=== PATIENT | male | born 1990 | race Caucasian/White ===

== ENCOUNTER 2018-03-19 12:10 | Emergency (ER) | payer BC ==
[2018-03-19 13:02] LABS: Absolute Monocytes 0.7 K/uL (0.1-1.3); Absolute Neutrophil 7.1 K/uL (1.8-8.0); Basophils % 0.7 % (0-1.3); Hematocrit 51.4 % (39.6-49.0); Lymphocytes % 20.5 % (15.3-44.8); MCH 29.7 pg (27.0-35.0); MCV 87.9 fL (80-100); MPV 12.2 fL (7.6-11.3); Monocytes % 6.9 % (3.3-12.3); RBC Red Blood Cell Count 5.85 M/uL (4.33-5.43)
[2018-03-19 13:13] LABS: Bicarbonate 25 mEq/L (21-31); Glucose Level 92 mg/dL (65-120); Lipase 26 U/L (22-51); Potassium 3.8 mEq/L (3.6-5.0); Sodium Level 139 mEq/L (135-145)
[2018-03-19 13:19] LABS: ALT/SGPT 27 IU/L (10-60); AST/SGOT 20 IU/L (10-42); Alkaline Phosphatase 58 IU/L (42-121); Amylase Level 61 U/L (28-100); BUN Blood Urea Nitrogen 12 mg/dL (6-20); Bilirubin Direct 0.1 mg/dL (0-0.2); Bilirubin Total 0.7 mg/dL (0.3-1.2); Protein, Total 8.1 g/dL (6.0-8.3)
[2018-03-19] MEDS ORDERED: NA CHLORIDE 0.9% 1,000 ML ONE (13:33)
[2018-03-19] MEDS ORDERED: KETOROLAC 30 MG/ML INJ ONE (13:33)
[2018-03-19] MEDS ORDERED: ONDANSETRON 4 MG/2 ML VIAL ONE (13:33)
--- NOTE | 2018-03-19 14:12 | EDPHYS ---
Physician Documentation [facility] Name: Navdeep Yo Age: 27 yrs Sex: Male : 1990 Arrival Date: 03/19/2018 Time: 12:14 Bed 18 Private MD: ED Physician Abdullahi Vernon HPI: 03/19 13:07 This 27 yrs old Male presents to ER via Ambulatory with complaints of kb Abdominal Pain. 13:07 The patient presents with abdominal pain in the right upper quadrant. Onset: The kb symptoms/episode began/occurred last night. The symptoms do not radiate. Associated signs and symptoms: Pertinent positives: nausea, vomiting, and diarrhea. The symptoms are described as achy. Modifying factors: The symptoms are alleviated by nothing, the symptoms are aggravated by pressure. Severity of pain: At its worst the pain was moderate in the emergency department the pain is unchanged. The patient has experienced a previous episode. The patient has not recently seen a physician. 13:08 Pt states he has had RUQ pain, n/v/d since last night. States the nausea and vomiting kb have gotten better. Reports the pain feels like the pain he had when he was diagnosed with an ulcer in the past. Historical: - Allergies: 12:19 No Known Allergies; la1 - PMHx: 12:19 Hypertension; la1 - Immunization history:: Adult Immunizations up to date. - Social history:: Smoking status: Patient uses tobacco products, smokes one-half pack cigarettes per day. ROS: 13:06 Constitutional: Negative for fever, chills, and weight loss, Cardiovascular: Negative kb for chest pain, palpitations, and edema, Respiratory: Negative for shortness of breath, cough, wheezing, and pleuritic chest pain, Back: Negative for injury and pain, : Negative for injury, bleeding, discharge, and swelling, MS/Extremity: Negative for injury and deformity, Skin: Negative for injury, rash, and discoloration, Neuro: Negative for headache, weakness, numbness, tingling, and seizure. 13:06 Abdomen/GI: Positive for abdominal pain, nausea, vomiting, and diarrhea, Negative for constipation, abdominal cramps, abdominal distension, anorexia. Exam: 13:06 Constitutional: This is a well developed, well nourished patient who is awake, alert, kb and in no acute distress. Head/Face: Normocephalic, atraumatic. Chest/axilla: Normal chest wall appearance and motion. Nontender with no deformity. No lesions are appreciated. Cardiovascular: Regular rate and rhythm with a normal S1 and S2. No gallops, murmurs, or rubs. Normal PMI, no JVD. No pulse deficits. Respiratory: Lungs have equal breath sounds bilaterally, clear to auscultation and percussion. No rales, rhonchi or wheezes noted. No increased work of breathing, no retractions or nasal flaring. Back: No spinal tenderness. No costovertebral tenderness. Full range of motion. Skin: Warm, dry with normal turgor. Normal color with no rashes, no lesions, and no evidence of cellulitis. MS/ Extremity: Pulses equal, no cyanosis. Neurovascular intact. Full, normal range of motion. Neuro: Awake and alert, GCS 15, oriented to person, place, time, and situation. Cranial nerves II-XII grossly intact. Motor strength 5/5 in all extremities. Sensory grossly intact. Cerebellar exam normal. Normal gait. 13:06 Abdomen/GI: Inspection: abdomen appears normal, Bowel sounds: normal, in all quadrants, Palpation: soft, in all quadrants, nontender, in the left upper quadrant, right lower quadrant and left lower quadrant, moderate abdominal tenderness, in the right upper quadrant. Vital Signs: 12:19 BP 148 / 98; Pulse 97; Resp 19; Temp 97.6; Pulse Ox 100% on R/A; Weight 86.18 kg; la1 Height 5 ft. 11 in. (180.34 cm); 12:19 Body Mass Index 26.50 (86.18 kg, 180.34 cm) la1 MDM: 12:21 Patient medically screened. kb 13:06 Data reviewed: vital signs, nurses notes. Data interpreted: Pulse oximetry: on room air kb is 100 %. Interpretation: normal. 14:11 Counseling: I had a detailed discussion with the patient and/or guardian regarding: the kb historical points, exam findings, and any diagnostic results supporting the discharge/admit diagnosis, lab results, radiology results, the need for outpatient follow up, a family practitioner, a special forces engineer sergeant, to return to the emergency department if symptoms worsen or persist or if there are any questions or concerns that arise at home. 03/19 12:34 Order name: Amylase, Serum; Complete Time: 13:20 kb 03/19 12:34 Order name: Basic Metabolic Panel; Complete Time: 13:20 kb 03/19 12:34 Order name: CBC with Diff; Complete Time: 13:10 kb 03/19 12:34 Order name: Hepatic Function; Complete Time: 13:20 kb 03/19 12:34 Order name: Lipase; Complete Time: 13:20 kb 03/19 13:22 Order name: US Abdomen Limited; Complete Time: 14:33 kb 03/19 12:34 Order name: IV Saline Lock; Complete Time: 12:47 kb 03/19 12:34 Order name: Labs collected and sent; Complete Time: 12:47 kb Administered Medications: 13:22 Drug: NS 0.9% 1000 ml Route: IV; Rate: 1000 ml; Site: right antecubital; hj 13:22 Drug: Zofran 4 mg Route: IVP; Site: right antecubital; hj 14:29 Follow up: Response: No adverse reaction hj 13:22 Drug: TORadol 30 mg Route: IVP; Site: right antecubital; hj 14:28 Follow up: Response: No adverse reaction hj 14:11 Drug: ProTONIX 40 mg Route: IVP; Site: right antecubital; hj 14:45 Follow up: Response: No adverse reaction Disposition: 03/19/18 14:12 Discharged to Home. Impression: Upper abdominal pain, unspecified. - Condition is Stable. - Discharge Instructions: Abdominal Pain, Adult, Affe-se-Opmy. - Prescriptions for Bentyl 20 mg Oral Tablet - take 1 tablet by ORAL route every 6 hours As needed; 20 tablet. Protonix 40 mg Oral Tablet - take 1 tablet by ORAL route once daily; 30 tablet. Zofran 4 mg Oral Tablet - take 1 tablet by ORAL route every 6 hours As needed; 20 tablet. - Medication Reconciliation Form, Thank You Letter, Antibiotic Education, Prescription Opioid Use form. - Follow up: Emergency Department; When: As needed; Reason: Worsening of condition. Follow up: Private Physician; When: 2 - 3 days; Reason: Recheck today's complaints, Continuance of care, Re-evaluation by your physician. Addendum: 03/28/2018 05:51 Co-signature as Attending Physician, Abdullahi Vernon MD I agree with the assessment and w a plan of care. Signatures: Dispatcher [employer] EDPau Johnson, STEAM BOILER FIREMAN-C STEAM BOILER FIREMAN-Ckb Arvind Montoya RN RN la1 Maurice Bates RN AGNEL hj Abdullahi Vernon MD MD wa Corrections: (The following items were deleted from the chart) 03/19 14:49 14:12 03/19/2018 14:12 Discharged to Home. Impression: Upper abdominal pain, hj unspecified. Condition is Stable. Forms are Medication Reconciliation Form, Thank You Letter, Antibiotic Education, Prescription Opioid Use. Follow up: Emergency Department; When: As needed; Reason: Worsening of condition. Follow up: Private Physician; When: 2 - 3 days; Reason: Recheck today's complaints, Continuance of care, Re-evaluation by your physician. kb
--- NOTE | 2018-03-19 14:12 | ER ---
Nurse's Notes [facility] Name: Navdeep Yo Age: 27 yrs Sex: Male : 1990 Arrival Date: 03/19/2018 Time: 12:14 Bed 18 Private MD: Diagnosis: Upper abdominal pain, unspecified Presentation: 03/19 12:19 Presenting complaint: Patient states: RLQ pain, N/V/D since last night'. Transition of la1 care: patient was not received from another setting of care. Onset of symptoms was March 19, 2018. Initial Sepsis Screen: Does the patient meet any 2 criteria? No. Patient's initial sepsis screen is negative. Does the patient have a suspected source of infection? No. Patient's initial sepsis screen is negative. Care prior to arrival: None. 12:19 Method Of Arrival: Ambulatory la1 12:19 Acuity: DAV 3 la1 Triage Assessment: 12:35 General: Appears in no apparent distress. uncomfortable, Behavior is calm, cooperative, hj appropriate for age. Pain: Complains of pain in abdomen. GI: Reports lower abdominal pain, upper abdominal pain. Historical: - Allergies: 12:19 No Known Allergies; la1 - PMHx: 12:19 Hypertension; la1 - Immunization history:: Adult Immunizations up to date. - Social history:: Smoking status: Patient uses tobacco products, smokes one-half pack cigarettes per day. Screenin:35 Abuse screen: Denies threats or abuse. Denies injuries from another. Nutritional hj screening: No deficits noted. Tuberculosis screening: No symptoms or risk factors identified. Fall Risk None identified. Assessment: 12:35 GI: Bowel sounds present X 4 quads. Abd is soft. hj Vital Signs: 12:19 BP 148 / 98; Pulse 97; Resp 19; Temp 97.6; Pulse Ox 100% on R/A; Weight 86.18 kg; la1 Height 5 ft. 11 in. (180.34 cm); 12:19 Body Mass Index 26.50 (86.18 kg, 180.34 cm) la1 ED Course: 12:14 Patient arrived in ED. sb2 12:19 Triage completed. la1 12:20 Arm band placed on right wrist. la1 12:21 Mikal Weinberg FNP-C is PHCP. kb 12:21 Abdullahi Vernon MD is Attending Physician. kb 12:34 Maurice Bates, RN is Primary Nurse. hj 12:36 Patient has correct armband on for positive identification. Placed in gown. Bed in low hj position. Call light in reach. Side rails up X 1. 13:55 Ultrasound completed. Patient tolerated well. Notified PARKS RECREATION COORDINATOR/PA MIKAL. ap2 14:46 No provider procedures requiring assistance completed. Initial lab(s) drawn, by me, hj sent to lab. Inserted saline lock: 22 gauge in right antecubital area, using aseptic technique. Blood collected. IV discontinued, intact, bleeding controlled, No redness/swelling at site. Pressure dressing applied. Administered Medications: 13:22 Drug: NS 0.9% 1000 ml Route: IV; Rate: 1000 ml; Site: right antecubital; hj 13:22 Drug: Zofran 4 mg Route: IVP; Site: right antecubital; hj 14:29 Follow up: Response: No adverse reaction hj 13:22 Drug: TORadol 30 mg Route: IVP; Site: right antecubital; hj 14:28 Follow up: Response: No adverse reaction hj 14:11 Drug: ProTONIX 40 mg Route: IVP; Site: right antecubital; hj 14:45 Follow up: Response: No adverse reaction hj Outcome: 14:12 Discharge ordered by MD. kb 14:46 Discharged to home ambulatory. hj 14:46 Condition: stable 14:46 Discharge instructions given to patient, Instructed on discharge instructions, follow up and referral plans. medication usage, Demonstrated understanding of instructions, follow-up care, medications, Prescriptions given X 3. 14:49 Patient left the ED. Signatures: Dispatcher [employer] EDIN Mikal Weinberg, SPIRAL RUNNER-C SPIRAL RUNNER-CkArvind Stevenson, RN RN la1 Mauriec Bates, RN RN Leslee Estrada ap2 Jewels Hagen sb2 Corrections: (The following items were deleted from the chart) 14:27 14:23 In radiology for Abdomen Limited+[email or web address]. EDMS ap2
--- NOTE | 2018-03-19 14:31 | RAD REPORT ---
EXAM DESCRIPTION: US - Abdomen Exam Limited - 03/19/2018 2:23 pm CLINICAL HISTORY: Abdominal pain. COMPARISON: None. FINDINGS: The gallbladder demonstrates no gallstones. No pericholecystic fluid or gallbladder wall t hickening. The common bile duct is normal measuring 3 mm. The liver demonstrates no findings of intrahepatic biliary dilatation. IMPRESSION: Unremarkable examination.
== END 2018-03-19 14:49 | disposition home or self-care (01) ==
LOC: ER 12:10
DX: R10.11 Right upper quadrant pain (principal); I10 Essential (primary) hypertension; F17.210 Nicotine dependence, cigarettes, uncomplicated
CPT/HCPCS: 36415; 76705; 80048; 80076; 82150; 83690; 85025; 96374; 96375; 99284; J2405; J7030

== ENCOUNTER 2019-10-10 08:44 | Observation (INO) | payer BC, SELFPAY ==
[2019-10-10] MEDS ORDERED: NA CHLORIDE 0.9% 1,000 ML ONE ×3 (08:55→10:50)
[2019-10-10 09:00] LABS: Absolute Lymphocytes (CBC) 3.3 K/uL (0.7-4.9); Basophils % 0.7 % (0-1.3); Hematocrit 50.5 % (39.6-49.0); Lymphocytes % 29.6 % (15.3-44.8); MPV 11.9 fL (7.6-11.3); RBC Red Blood Cell Count 5.51 M/uL (4.33-5.43)
[2019-10-10 09:10] LABS: Protime INR 0.93
[2019-10-10 09:21] LABS: ALT/SGPT 33 U/L (12-78); AST/SGOT 16 U/L (15-37); Albumin 4.7 g/dL (3.4-5.0); Alkaline Phosphatase 73 U/L (45-117); BUN Blood Urea Nitrogen 13 mg/dL (7-18); Bilirubin Direct 0.1 mg/dL (0-0.2); Bilirubin Total 0.2 mg/dL (0.2-1.0); Glucose Level 129 mg/dL (74-106); Potassium 3.8 mmol/L (3.5-5.1); Protein, Total 8.6 g/dL (6.4-8.2); Sodium Level 146 mmol/L (136-145)
[2019-10-10] MEDS ORDERED: ONDANSETRON 4 MG/2 ML VIAL ONE ×3 (09:21→16:03)
[2019-10-10 09:24] LABS: Bicarbonate 13 mmol/L (21-32)
--- NOTE | 2019-10-10 09:38 | EKG ---
Test Date: 2019-10-10 Test Time: 08:52:24 Telegraph And Teletype Operator: EFE MEASUREMENT RESULTS: Intervals: Rate: 123 [place]: 156 QRSD: 96 QT: 326 QTc: 466 [place]: P: 59 [place]: 156 QRS: 64 T: 21 INTERPRETIVE STATEMENTS: Sinus tachycardia Otherwise normal ECG Compared to ECG 03/08/2011 09:40:34 Sinus rhythm no longer present Electronically Signed On 10-10-19 09:37:58 AMERICAN BOARD CERTIFIED ORTHOTIST by Emil Garner
--- NOTE | 2019-10-10 09:47 | RAD REPORT ---
EXAM DESCRIPTION: CT - Head Brain Wo Cont - 10/10/2019 9:07 am CLINICAL HISTORY: Seizure COMPARISON: 2010 TECHNIQUE: Computed axial tomography of the head was obtained. IV contrast was not requested. All CT scans are performed using dose optimization technique as appropriate and may include automated exposure control or mA/KV adjustment according to patient size. FINDINGS: An intracranial bleed is not seen . The ventricles are normal in caliber. No extra-axial fluid collection is noted. A 3 millimeter peripherally calcified structure is present along the floor of the fourth ventricle. T his is not seen on the prior exam Fluid within the sinuses/ mastoids is not seen. IMPRESSION: A 3 millimeter peripherally calcified structure is present along the floor of the fourth ventricle . It is recommended that the patient have an MRI with contrast for further evaluation
--- NOTE | 2019-10-10 11:58 | RAD REPORT ---
EXAM DESCRIPTION: MRI - Brain Wo Cont - 10/10/2019 11:31 am CLINICAL HISTORY: abnormal CT findings Seizure COMPARISON: Head Brain Wo Cont dated 10/10/2019Head Brain Wo Cont dated 10/10/2019; HEAD BRAIN W O CON TRAST dated 03/08/2011 TECHNIQUE: Multi-sequence, multiplanar MR imaging of the brain was performed without contrast. FINDINGS: No intracranial hemorrhage, hydrocephalus or extra-axial fluid collections. No edema or sh ift of midline structures. No findings to suspect brain mass. DWI is negative for acute CVA. Midline structures are normally formed. Hippocampal structures and temporal lobes appear symmetric. T he small lesion seen near the inferior fourth ventricle on recent CT is not visualized on this examin ation. Mastoid air cells and paranasal sinuses are clear. IMPRESSION: No correlate abnormality is seen on the MRI to the small lesion identified on recent CT study. Recommending follow-up CT head examination in 6 months for surveillance purposes. No acute intracranial abnormality or otherwise pathologic finding seen on this study.
--- NOTE | 2019-10-10 12:23 | ER ---
Nurse's Notes [facility] Name: Navdeep Yo Age: 29 yrs Sex: Male : 1990 Arrival Date: 10/10/2019 Time: 08:46 Bed 4 Private MD: Diagnosis: Seizure;Altered mental status, unspecified;Dehydration Presentation: 10/10 08:49 Presenting complaint: Coworker reports that when they were driving to their job site ss that patient had what seemed to be a seizure lasting 1-2 minutes. Pt reports that he went out drinking last night had 6-7 beers, went home and fell asleep. Denies drug use. Pt states he feels as if somebody drugged him. Transition of care: patient was not received from another setting of care. Onset of symptoms was October 10, 2019. Risk Assessment: Do you want to hurt yourself or someone else? Patient reports no desire to harm self or others. Initial Sepsis Screen: Does the patient meet any 2 criteria? RR > 20 per min. HR > 90 bpm. Does the patient have a suspected source of infection? No. Patient's initial sepsis screen is negative. Note Co worker reports that when patient arrived to work this morning, he was drowsy and had slow speech. Care prior to arrival: None. 08:49 Acuity: DAV 2 ss 08:49 Method Of Arrival: Wheelchair ss Historical: - Allergies: 08:53 No Known Allergies; ss - Home Meds: 08:53 None [Active]; ss - PMHx: 08:53 Hypertension; ss - PSHx: 08:53 None; ss - Immunization history:: Adult Immunizations unknown. - Social history:: Patient uses alcohol, occasionally. Patient/guardian denies using street drugs, Smoking status: unknown. - Ebola Screening: : Patient denies exposure to infectious person Patient denies travel to an Ebola-affected area in the 21 days before illness onset. Screenin:55 Abuse screen: Denies threats or abuse. Denies injuries from another. Nutritional hb screening: No deficits noted. Tuberculosis screening: No symptoms or risk factors identified. Fall Risk Total Lion Fall Scale indicates High Risk Score (45 or more points). Fall prevention measures have been instituted. Side Rails Up X 2 Frequent Obs/Assessments Occuring Family Present and informed to notify staff if the need to leave the bedside As available patient and family educated on Fall Prevention Program and Strategies. Assessment: 09:00 General: Appears in no apparent distress. Behavior is calm, cooperative, Smells of hb alcohol. Pain: Denies pain. Neuro: Level of Consciousness is awake, alert, obeys commands, Oriented to person, place, time, situation. Cardiovascular: Heart tones S1 S2 present Capillary refill < 3 seconds Patient's skin is warm and dry. Respiratory: Airway is patent Respiratory effort is even, unlabored, Respiratory pattern is regular, symmetrical, Breath sounds are clear bilaterally. GI: No signs and/or symptoms were reported involving the gastrointestinal system. : No signs and/or symptoms were reported regarding the genitourinary system. EENT: No signs and/or symptoms were reported regarding the EENT system. Derm: Skin is healthy with good turgor, Skin is pink, warm \T\ dry. Musculoskeletal: No signs and/or symptoms reported regarding the musculoskeletal system. 09:20 Reassessment: Pt returned from ct and reports nausea, ERD notified, see MAR for orders. jl7 10:00 Reassessment: Patient appears in no apparent distress at this time. Patient and/or hb family updated on plan of care and expected duration. Pain level reassessed. Patient is alert, oriented x 3, equal unlabored respirations, skin warm/dry/pink. 10:17 Reassessment: pt assisted to standing to try to obtain urine specimen, pt unable to iw urinate at this time, assisted back to bed, pt unsteady on feet, follows commands but is slow to respond, family at bedside, pt remains tachycardic at 111 bpm, VSS, NAD, 2nd liter NS bolus started. 11:14 Reassessment: pt remains in MRI at this time. iw 11:30 Reassessment: pt back from MRI. iw 11:35 Reassessment: Patient appears in no apparent distress at this time. Patient and/or iw family updated on plan of care and expected duration. Pain level reassessed. Patient is alert, oriented x 3, equal unlabored respirations, skin warm/dry/pink. pt states his feet feel tingly, does not feel back to normal yet, family at bedside, pt still tachycardic, 3rd liter of fluid started now. 14:44 Reassessment: Patient appears in no apparent distress at this time. Patient and/or iw family updated on plan of care and expected duration. Pain level reassessed. Patient is alert, oriented x 3, equal unlabored respirations, skin warm/dry/pink. tech at bedside for EEG. 15:08 Reassessment: Patient appears in no apparent distress at this time. Patient and/or iw family updated on plan of care and expected duration. Pain level reassessed. Patient is alert, oriented x 3, equal unlabored respirations, skin warm/dry/pink. pt c/o nausea. 16:07 Reassessment: Pt c/o nausea. Zofran given as ordered. ss 16:20 Reassessment: Report given to ANGEL Ludwig. Vital Signs: 08:53 BP 139 / 75; Pulse 131; Resp 24; Pulse Ox 96% on R/A; Pain 0/10; ss 10:16 BP 140 / 80; Pulse 111; Resp 18 S; Pulse Ox 99% on R/A; iw 11:56 BP 143 / 98; Pulse 107; Resp 16 S; Temp 98.0(TE); Pulse Ox 98% on R/A; iw 12:51 BP 134 / 101; Pulse 108; Resp 16 S; Pulse Ox 100% on R/A; jl7 13:25 BP 122 / 109; Pulse 109; Resp 18; Temp 98.0(TE); Pulse Ox 96% on R/A; mh5 15:08 BP 133 / 97; Pulse 108; Resp 16; Pulse Ox 100% on R/A; iw 16:20 Pain 0/10; ss ED Course: 08:46 Patient arrived in ED. mr 08:47 Gordon Sharif PA is PHCP. jr8 08:47 Rome Rose MD is Attending Physician. jr8 08:50 Inserted saline lock: 18 gauge in right antecubital area, using aseptic technique. hb Blood collected. 08:52 Triage completed. ss 08:53 Arm band placed on left wrist. ss 08:55 Kaylin Carrizales, ANGEL is Primary Nurse. hb 09:00 Patient has correct armband on for positive identification. Placed in gown. Bed in low hb position. Call light in reach. Side rails up X2. Seizure precautions initiated. 09:04 EKG done, by instrument tech. reviewed by Gordon CALDERON. at1 09:11 CT Head Brain wo Cont In Process Unspecified. EDMS 11:26 MRI - Brain Wo Cont In Process Unspecified. EDMS 12:21 Armani Haines MD is Hospitalizing Provider. jr8 14:40 EEG was performed. at1 16:20 No provider procedures requiring assistance completed. Patient admitted, IV remains in ss place. Administered Medications: 08:57 Drug: NS 0.9% 1000 ml Route: IV; Rate: 1000 ml; Site: right antecubital; hb 09:20 Drug: Zofran 4 mg Route: IVP; Site: right antecubital; jl7 09:40 Follow up: Response: No adverse reaction; Nausea is decreased jl7 10:15 Drug: NS 0.9% 1000 ml Route: IV; Rate: 1000 ml; Site: right antecubital; iw 11:30 Drug: NS 0.9% 1000 ml Route: IV; Rate: 1000 ml; Site: right antecubital; iw 12:46 Drug: Zofran 4 mg Route: IVP; Site: right antecubital; jl7 13:06 Follow up: Response: No adverse reaction iw 16:05 Drug: Zofran 4 mg Route: IVP; Site: right antecubital; Point of Care Testing: Blood Glucose: 08:50 Blood Glucose: 123 mg/dL; Ranges: Outcome: 12:22 Decision to Hospitalize by Provider. jr8 16:20 Admitted to Tele accompanied by tech, via wheelchair, room 215. ss 16:20 Condition: stable 16:20 Instructed on the need for admit. 16:23 Patient left the ED. Signatures: Dispatcher [employer] [facility] Pasha Tejal Rashida Rivera, Briana Fair RN, RN RN Gordon Sharif PA PA jr8 Angi Hurst, sidewalk repairer EKG Tat1 Kaylin Carrizales RN RN hb Martinez, [facility] Perla Proctor RN RN jl7 Corrections: (The following items were deleted from the chart) 08:55 08:49 Initial Sepsis Screen: Does the patient meet any 2 criteria? No. Patient's ss initial sepsis screen is negative. Does the patient have a suspected source of infection? No. Patient's initial sepsis screen is negative. ss
--- NOTE | 2019-10-10 12:23 | EDPHYS ---
Physician Documentation [facility] Name: Navdeep Yo Age: 29 yrs Sex: Male : 1990 Arrival Date: 10/10/2019 Time: 08:46 Bed 4 Private MD: MICKI Physician Rome Rose HPI: 10/10 11:02 This 29 yrs old Male presents to ER via Wheelchair with complaints of Seizure.jr8 11:02 The patient presents after having a single isolated seizure, that lasted 1 minute(s). jr8 Character of seizure(s): Loss of consciousness: the patient experienced loss of consciousness, Motor activity: generalized, Incontinence: none, Apnea: the patient did not experience apnea, Circulation: the patient did not experience evidence of pulse disturbance, Eye movements: are unknown. Seizure onset: just prior to arrival. Context: the seizure(s) was witnessed, by co-worker(s), occurred while the patient was at rest, sitting, Contributing factors: recent alcohol abuse. Seizure Hx: the patient has no previous seizure history. Associated injury: The patient did not suffer any apparent associated injury. Current symptoms: confusion. The patient has not experienced similar symptoms in the past. The patient has not recently seen a physician. Friend of patient stated that patient came to work this morning and looked dazed and bad. Stated that they were driving to work site and patient started to have seizure in passenger seat. Brought to ED at that time. Patient sluggish but alert to person, place, time. Does not recall seizure episode. Stated that he had several drinks last night but went to bed feeling fine . Historical: - Allergies: 08:53 No Known Allergies; ss - Home Meds: 08:53 None [Active]; ss - PMHx: 08:53 Hypertension; ss - PSHx: 08:53 None; ss - Immunization history:: Adult Immunizations unknown. - Social history:: Patient uses alcohol, occasionally. Patient/guardian denies using street drugs, Smoking status: unknown. - Ebola Screening: : Patient denies exposure to infectious person Patient denies travel to an Ebola-affected area in the 21 days before illness onset. ROS: 11:02 Eyes: Negative for injury, pain, redness, and discharge, ENT: Negative for injury, jr8 pain, and discharge, Neck: Negative for injury, pain, and swelling, Cardiovascular: Negative for chest pain, palpitations, and edema, Respiratory: Negative for shortness of breath, cough, wheezing, and pleuritic chest pain, Abdomen/GI: Negative for abdominal pain, nausea, vomiting, diarrhea, and constipation, Back: Negative for injury and pain, MS/Extremity: Negative for injury and deformity, Skin: Negative for injury, rash, and discoloration. 11:02 Neuro: Positive for altered mental status, seizure activity. Exam: 11: Eyes: Pupils equal round and reactive to light, extra-ocular motions intact. Lids and jr8 lashes normal. Conjunctiva and sclera are non-icteric and not injected. Cornea within normal limits. Periorbital areas with no swelling, redness, or edema. ENT: Nares patent. No nasal discharge, no septal abnormalities noted. Tympanic membranes are normal and external auditory canals are clear. Oropharynx with no redness, swelling, or masses, exudates, or evidence of obstruction, uvula midline. Mucous membranes moist. Neck: Trachea midline, no thyromegaly or masses palpated, and no cervical lymphadenopathy. Supple, full range of motion without nuchal rigidity, or vertebral point tenderness. No Meningismus. Cardiovascular: Regular rate and rhythm with a normal S1 and S2. No gallops, murmurs, or rubs. Normal PMI, no JVD. No pulse deficits. Respiratory: Lungs have equal breath sounds bilaterally, clear to auscultation and percussion. No rales, rhonchi or wheezes noted. No increased work of breathing, no retractions or nasal flaring. Abdomen/GI: Soft, non-tender, with normal bowel sounds. No distension or tympany. No guarding or rebound. No evidence of tenderness throughout. Back: No spinal tenderness. No costovertebral tenderness. Full range of motion. MS/ Extremity: Pulses equal, no cyanosis. Neurovascular intact. Full, normal range of motion. 11: Skin: Appearance: Color: pale, Temperature: cool, Moisture: damp. 11:02 Neuro: Orientation: to person, place \T\ time. Mentation: able to follow commands, slow to respond, Memory: immediate memory is intact, remote memory is intact. recent memory is intact, Cranial nerves: CN I not tested, CN II- XII are normal as tested, visual jackson are intact. extraocular movements are intact, Facial palsy and sensory deficits are absent. Speech is clear and appropriate. Tongue strength is normal, Cerebellar function: normal finger to nose testing, Motor: moves all fours, strength is 5/5 in all extremities, Sensation: no obvious gross deficits, Gait: is unsteady, seizure activity, is not currently displayed, but the patient is post-ictal, Abnormal movements: there are no abnormal movements. Vital Signs: 08:53 BP 139 / 75; Pulse 131; Resp 24; Pulse Ox 96% on R/A; Pain 0/10; ss 10:16 BP 140 / 80; Pulse 111; Resp 18 S; Pulse Ox 99% on R/A; iw 11:56 BP 143 / 98; Pulse 107; Resp 16 S; Temp 98.0(TE); Pulse Ox 98% on R/A; iw 12:51 BP 134 / 101; Pulse 108; Resp 16 S; Pulse Ox 100% on R/A; jl7 13:25 BP 122 / 109; Pulse 109; Resp 18; Temp 98.0(TE); Pulse Ox 96% on R/A; mh5 15:08 BP 133 / 97; Pulse 108; Resp 16; Pulse Ox 100% on R/A; iw 16:20 Pain 0/10; ss MDM: 08:47 Patient medically screened. jr8 12:19 Data reviewed: vital signs, nurses notes, lab test result(s), EKG, radiologic studies, jr8 CT scan, MRI. Data interpreted: Pulse oximetry: on room air is 98 %. Interpretation: normal. Counseling: I had a detailed discussion with the patient and/or guardian regarding: the historical points, exam findings, and any diagnostic results supporting the discharge/admit diagnosis, lab results, radiology results, the need for further work-up and treatment in the hospital. ED course: Patient has improved but mentation is still slow and still confused. Discussed this with Dr. Haines who agreed to admit for obs. Will contact Dr. Neves for consult . 10/10 08:47 Order name: Acetaminophen; Complete Time: 10:42 jr8 10/10 08:47 Order name: Basic Metabolic Panel; Complete Time: 10:42 jr8 10/10 08:47 Order name: CBC with Diff 8 10/10 08:47 Order name: ETOH Level; Complete Time: 09:24 jr8 10/10 08:47 Order name: Hepatic Function; Complete Time: 10:42 jr8 10/10 08:47 Order name: PT-INR; Complete Time: 09:24 jr8 10/10 08:47 Order name: Ptt, Activated; Complete Time: 09:24 jr8 10/10 08:47 Order name: Salicylate; Complete Time: 10:42 jr8 10/10 08:47 Order name: Urine Drug Screen; Complete Time: 12:38 jr8 10/10 12:15 Order name: Urine Dipstick--Ancillary (enter results); Complete Time: 12:55 bd 10/10 12:58 Order name: CBC with Automated Diff EDMS 10/10 12:58 Order name: CBC with Automated Diff EDMS 10/10 12:58 Order name: Comprehensive Metabolic Panel EDMS 10/10 12:58 Order name: Comprehensive Metabolic Panel EDMS 10/10 08:47 Order name: EKG; Complete Time: 08:48 8 10/10 08:47 Order name: EKG - Nurse/Tech; Complete Time: 08:52 jr8 10/10 08:47 Order name: CT Head Brain wo Cont; Complete Time: 10:42 jr8 10/10 10:43 Order name: MRI - Brain Wo Cont; Complete Time: 12:03 8 10/10 12:58 Order name: CONS Pharmacy Consult EDDE 10/10 12:58 Order name: CONS Physician Consult EDDE 10/10 12:58 Order name: Heart Healthy EDDE 10/10 12:58 Order name: EEG Request EDDE 10/10 12:58 Order name: EEG Request EDDE 10/10 13:00 Order name: Regular EDDE 10/10 08:47 Order name: IV Saline Lock; Complete Time: 08:52 jr8 10/10 08:47 Order name: Labs collected and sent; Complete Time: 08:52 jr8 10/10 08:47 Order name: Urine Dipstick-Ancillary (obtain specimen); Complete Time: 12:14 jr8 Administered Medications: 08:57 Drug: NS 0.9% 1000 ml Route: IV; Rate: 1000 ml; Site: right antecubital; hb 09:20 Drug: Zofran 4 mg Route: IVP; Site: right antecubital; jl7 09:40 Follow up: Response: No adverse reaction; Nausea is decreased jl7 10:15 Drug: NS 0.9% 1000 ml Route: IV; Rate: 1000 ml; Site: right antecubital; iw 11:30 Drug: NS 0.9% 1000 ml Route: IV; Rate: 1000 ml; Site: right antecubital; iw 12:46 Drug: Zofran 4 mg Route: IVP; Site: right antecubital; jl7 13:06 Follow up: Response: No adverse reaction iw 16:05 Drug: Zofran 4 mg Route: IVP; Site: right antecubital; Point of Care Testing: Blood Glucose: 08:50 Blood Glucose: 123 mg/dL; ss Ranges: Critical Glucose Levels:Adult <50 mg/dl or >400 mg/dl <40 mg/dl or >180 mg/dl Disposition: 19:04 Co-signature as Attending Physician, Rome Rose MD Signing chart for administrative ps1 purposes. Available for consultation in ED. . Disposition: 10/10/19 12:22 Hospitalization ordered by Armani Haines for Observation. Preliminary diagnosis are Seizure, Altered mental status, unspecified, Dehydration. - Bed requested for Telemetry/MedSurg (observation). - Status is Observation. ss - Condition is Stable. - Problem is new. - Symptoms have improved. UTI on Admission? No Signatures: Dispatcher [employer] EDMS Briana England Diana, RN Rashida Martini, RN ANGEL Briana Rivera RN RN ss Gordon Sharif PA PA jr8 Kaylin Carrizales, RN Perla Fuller RN RN jl7 Rome Rose MD MD ps1 Corrections: (The following items were deleted from the chart) 15:33 12:22 Hospitalization Ordered by Armani Haines MD for Observation. Preliminary dw diagnosis is Seizure; Altered mental status, unspecified; Dehydration. Bed requested for Telemetry/MedSurg (observation). Status is Observation. Condition is Stable. Problem is new. Symptoms have improved. UTI on Admission? No. jr8 16:20 15:33 10/10/2019 12:22 Hospitalization Ordered by Armani Haines MD for Observation. bd Preliminary diagnosis is Seizure; Altered mental status, unspecified; Dehydration. Bed requested for Telemetry/MedSurg (observation). Status is Observation. Condition is Stable. Problem is new. Symptoms have improved. UTI on Admission? No. dw 16:23 16:20 10/10/2019 12:22 Hospitalization Ordered by Armani Haines MD for Observation. ss Preliminary diagnosis is Seizure; Altered mental status, unspecified; Dehydration. Bed requested for Telemetry/MedSurg (observation). Status is Observation. Condition is Stable. Problem is new. Symptoms have improved. UTI on Admission? No. bd
[2019-10-10 12:27] LABS: Barbiturates NEGATIVE (NEGATIVE); Benzodiazepines NEGATIVE (NEGATIVE); Cocaine NEGATIVE (NEGATIVE); METHAMPHETAM POSITIVE (NEGATIVE); Methadone NEGATIVE (NEGATIVE); Opiates NEGATIVE (NEGATIVE); Phencyclidine NEGATIVE (NEGATIVE); THC Cannibis NEGATIVE (NEGATIVE)
[2019-10-10 12:51] LABS: Urine Blood NEGATIVE (NEG); Urine Glucose NEGATIVE (NEG); Urine Protein NEGATIVE (NEG)
[2019-10-10] MEDS ORDERED: ONDANSETRON 4 MG/2 ML VIAL IV PRN (12:53)
[2019-10-10] MEDS ORDERED: ACETAMINOPHEN 500 MG TAB PO PRN (12:53)
[2019-10-10] MEDS ORDERED: MORPHINE 2 MG/ML SYR IV PRN (12:53)
[2019-10-10] MEDS ORDERED: NA CHLORIDE 0.9% 1,000 ML IV SCH (13:00)
[2019-10-10] MEDS: D5W 1,000 ML with NA BICARB 8.4% 50 MEQ IV SCH ×2 (14:33)
[2019-10-10 16:52] VITALS: BMI 28.2
[2019-10-10] MEDS ORDERED: levETIRAcetam 500 MG in NA CHLORIDE 0.9% 100 ML IV SCH (18:00)
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
[2019-10-11 00:18] VITALS: O2SAT 96
[2019-10-11] MEDS: D5W 1,000 ML with NA BICARB 8.4% 50 MEQ IV SCH ×4 (02:29→10:30)
[2019-10-11 06:08] LABS: ALT/SGPT 26 U/L (12-78); AST/SGOT 11 U/L (15-37); Albumin 3.8 g/dL (3.4-5.0); Alkaline Phosphatase 57 U/L (45-117); BUN Blood Urea Nitrogen 7 mg/dL (7-18); Bicarbonate 30 mmol/L (21-32); Bilirubin Total 0.4 mg/dL (0.2-1.0); Glucose Level 107 mg/dL (74-106); Potassium 3.5 mmol/L (3.5-5.1); Protein, Total 6.7 g/dL (6.4-8.2); Sodium Level 143 mmol/L (136-145)
[2019-10-11 06:10] LABS: Absolute Lymphocytes (CBC) 1.6 K/uL (0.7-4.9); Basophils % 0.4 % (0-1.3); Hematocrit 41.2 % (39.6-49.0); MPV 12.2 fL (7.6-11.3); RBC Red Blood Cell Count 4.73 M/uL (4.33-5.43)
[2019-10-11] MEDS ORDERED: levETIRAcetam 500 MG TAB PO SCH (09:00)
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
[2019-10-11 13:00] VITALS: BP 138/70; TEMP 97.3
--- NOTE | 2019-10-16 10:02 | EEG ---
CHART: [id number] TEST ID#: [id number] DATE OF STUDY: 10/10/2019 THE EEG WAS RECORDED PORTABLE IN THE EMERGENCY ROOM ON A 17 CHANNEL MACHINE. ELECTRODES WERE APPLIED IN THE USUAL MANNER USING THE INTERNATIONAL 10-20 SYSTEM. THE WAKING BACKGROUND RHYTHM IN THIS RECORD CONSISTS OF VERY WELL DEVELOPED AND WELL ORGANIZED WAVES OF 11 HZ., MAXIMAL IN THE POSTERIOR HEAD REGIONS WHICH ATTENUATE NORMALLY WITH EYE OPENING. LOW-VOLTAGE 18-22 HZ ACTIVITY IS EXPRESSED IN THE FRONTAL REGIONS. THERE ARE NO FOCAL OR LATERALIZING FEATURES. NO EPILEPTIFORM ACTIVITY APPEARS. SLEEP DID NOT OCCUR. HYPERVENTILATION WAS PERFORMED WELL AND PRODUCED NO SIGNIFICANT CHANGE. PHOTIC STIMULATION PRODUCED GOOD DRIVING BILATERALLY. IMPRESSION: NORMAL EEG FOR THE AGE OF THE PATIENT IN [place], DROWSINESS AND SLEEP.
== END 2019-10-11 13:20 | disposition home or self-care (01) ==
LOC: ER 08:44 → ERHOLD 12:55 → 2ND 16:21
PROVIDERS: ADMIT Hospitalist; ATTEND Hospitalist
DX: G40.909 Epilepsy, unspecified, not intractable, without status epilepticus (principal); F15.10 Other stimulant abuse, uncomplicated; F10.10 Alcohol abuse, uncomplicated; F17.210 Nicotine dependence, cigarettes, uncomplicated
CPT/HCPCS: 36415; 70450; 70551; 80048; 80053; 80076; 80307; 80320; 80329; 81003; 82947; 85025; 85610; 85730; 93005; 95816; 96374; 99285; G0378; J2405; J7030

== ENCOUNTER 2023-07-25 20:04 | Emergency (ER) | payer SELFPAY ==
[2023-07-25] MEDS ORDERED: NA CHLORIDE 0.9% 1,000 ML ONE (20:39)
[2023-07-25 20:47] LABS: Absolute Lymphocytes (CBC) 2.5 K/uL (0.7-4.9); Hematocrit 42.3 % (39.6-49.0); MCV 86.2 fL (80-100); MPV 11.2 fL (7.6-11.3); Platelets 179 thou/uL (152-406)
[2023-07-25 20:58] LABS: Potassium 3.9 mEq/L (3.5-5.1)
--- NOTE | 2023-07-25 21:45 | ER ---
Nurse's Notes [facility] Name: Navdeep Yo Age: 33 yrs Sex: Male : 1990 Arrival Date: 07/25/2023 Time: 20:04 Bed 4 Private MD: Diagnosis: Cramp and spasm Presentation: 07/25 20:11 Chief complaint: Patient states: BLE weakness and muscle cramps. States he has been me1 eating low carb for 1.5-2 weeks. Coronavirus screen: Vaccine status: Patient reports being unvaccinated. Ebola Screen: No symptoms or risks identified at this time. Initial Sepsis Screen: Does the patient meet any 2 criteria? No. Patient's initial sepsis screen is negative. Does the patient have a suspected source of infection? No. Patient's initial sepsis screen is negative. Risk Assessment: Do you want to hurt yourself or someone else? Patient reports no desire to harm self or others. Onset of symptoms was July 24, 2023. 20:11 Method Of Arrival: Ambulatory [facility] 20:11 Acuity: DAV 3 me1 Triage Assessment: 20:36 General: Appears in no apparent distress. comfortable, Behavior is calm, cooperative. jw7 Pain: Complains of pain in right leg and left leg Pain does not radiate. Quality of pain is described as crushing, Pain began suddenly, Is continuous. EENT: No deficits noted. No signs and/or symptoms were reported regarding the EENT system. Neuro: No deficits noted. Brock Agitation-Sedation Scale (RASS): 0 - Alert and Calm. Cardiovascular: No deficits noted. Respiratory: No deficits noted. GI: No deficits noted. No signs and/or symptoms were reported involving the gastrointestinal system. : No deficits noted. No signs and/or symptoms were reported regarding the genitourinary system. Derm: No deficits noted. No signs and/or symptoms reported regarding the dermatologic system. Musculoskeletal: No deficits noted. No signs and/or symptoms reported regarding the musculoskeletal system. Circulation, motion, and sensation intact. Range of motion: intact in all extremities. Historical: - Allergies: 20:17 No Known Allergies; me1 - Home Meds: 20:17 None [Active]; me1 - PMHx: 20:17 Hypertension; me1 - PSHx: 20:17 None; me1 - Immunization history:: Adult Immunizations up to date. - Social history:: Smoking status: Patient reports the use of cigarette tobacco products, smokes one-half pack cigarettes per day, Reported history of juuling and/or vaping. Screenin:36 [facility] ED Fall Risk Assessment (Adult) History of falling in the last 3 months, 7 including since admission No falls in past 3 months (0 pts) Score/Fall Risk Level 0 - 2 = Low Risk. Abuse screen: Denies threats or abuse. Denies injuries from another. Nutritional screening: No deficits noted. Tuberculosis screening: No symptoms or risk factors identified. Assessment: 20:40 General: see triage assessment. jw7 21:40 Reassessment: Patient appears in no apparent distress at this time. Patient and/or jw7 family updated on plan of care and expected duration. Pain level reassessed. Patient is alert, oriented x 3, equal unlabored respirations, skin warm/dry/pink. Patient states feeling better. Vital Signs: 20:11 BP 163 / 112 RA Sitting; Pulse 91; Resp 18; Temp 98.4(TE); Pulse Ox 99% on R/A; Weight me1 90.72 kg; Height 5 ft. 10 in. ; 20:37 BP 143 / 101; Pulse 91; Resp 16 S; Pulse Ox 96% on R/A; jw7 21:30 BP 150 / 100 RA Standing (auto/reg); Pulse 88 MON; Resp 16 S; Pulse Ox 98% on R/A; jw7 20:11 Body Mass Index 28.70 (90.72 kg, 177.8 cm) [facility] ED Course: 20:10 Patient arrived in ED. jj6 20:15 Pau Weinberg FNP-C is PHCP. kb 20:15 Ke Quinonez MD is Attending Physician. kb 20:17 Triage completed. me1 20:17 Arm band placed on Patient placed in waiting room. ok1 20:35 Chana Terry RN is Primary Nurse. jw7 20:36 Patient has correct armband on for positive identification. Bed in low position. Call [facility] light in reach. 20:36 Initial lab(s) drawn, by ok, sent to lab. Inserted saline lock: 20 gauge in left [facility] antecubital area, using aseptic technique. Blood collected. 20:36 Basic Metabolic Panel Sent. jw7 20:36 CBC with Diff Sent. jw7 21:26 Magnesium Sent. jw7 22: Provided Education on: discharge instructions. jw7 22: No provider procedures requiring assistance completed. IV discontinued, intact, jw7 bleeding controlled, No redness/swelling at site. Pressure dressing applied. Administered Medications: 20:36 Drug: NS 0.9% IV 1000 ml IV at 1000 ml once Route: IV; Rate: 1000 ml; Site: left [facility] antecubital; 22:02 Follow up: Response: No adverse reaction; IV Status: Completed infusion; IV Intake: jw7 1000ml Medication: 22:01 VIS not applicable for this client. jw7 Intake: 22:02 IV: 1000ml; Total: 1000ml. jw7 Outcome: :45 Discharge ordered by MD. aleman 22:01 Discharged to home ambulatory, jw7 22:01 Condition: stable 22:01 Discharge instructions given to patient, Instructed on discharge instructions, follow up and referral plans. Demonstrated understanding of instructions, follow-up care, 22:02 Patient left the ED. jw7 Signatures: Pau Weinberg, BUTTER LIQUEFIER-C BUTTER LIQUEFIER-CkBirdie Boyle jj6 Chana Terry, RN RN jw7 Shayy Ramirez, RN RN me1
--- NOTE | 2023-07-25 21:45 | EDPHYS ---
Physician Documentation [facility] Name: Navdeep Yo Age: 33 yrs Sex: Male : 1990 Arrival Date: 07/25/2023 Time: 20:04 Bed 4 Private MD: ED Physician Ke Quinonez HPI: 07/25 21:47 This 33 yrs old Male presents to ER via Ambulatory with complaints of Low Ext kb Weakness/Fatigue. 21:47 Pt presents for lower extremity pain/cramps/muscle weakness. States this has happened kb before due to electrolyte imbalance so he thinks that is happening again. States he has been on a strict low carb diet for about 2 weeks. 21:48 The patient presents with pain. The complaints affect the right leg and left leg. kb Context: The problem was sustained at home. Onset: The symptoms/episode began/occurred yesterday. Modifying factors: The symptoms are alleviated by nothing. the symptoms are aggravated by nothing. Associated signs and symptoms: The patient has no apparent associated signs or symptoms. Treatment prior to arrival includes: no previous treatment. Severity of symptoms: At their worst the symptoms were mild, moderate, in the emergency department the symptoms are unchanged. The patient has experienced a previous episode. The patient has not recently seen a physician. Historical: - Allergies: 20:17 No Known Allergies; me1 - Home Meds: 20:17 None [Active]; me1 - PMHx: 20:17 Hypertension; me1 - PSHx: 20:17 None; me1 - Immunization history:: Adult Immunizations up to date. - Social history:: Smoking status: Patient reports the use of cigarette tobacco products, smokes one-half pack cigarettes per day, Reported history of juuling and/or vaping. ROS: 21:46 Constitutional: Negative for fever, chills, and weight loss, kb 21:46 MS/extremity: Positive for pain, of the right leg and left leg, cramps, 21:46 All other systems are negative, Exam: 21:46 Constitutional: This is a well developed, well nourished patient who is awake, alert, kb and in no acute distress. Head/Face: Normocephalic, atraumatic. ENT: Moist Mucous membranes Cardiovascular: Regular rate Respiratory: Respirations even and unlabored. No increased work of breathing. Talking in full sentences Abdomen/GI: Soft, non-tender. No distention Skin: Warm, dry with normal turgor. Normal color. MS/ Extremity: Pulses equal, no cyanosis. Neurovascular intact. Full, normal range of motion. Neuro: Awake and alert, GCS 15, oriented to person, place, time, and situation. Moves all extremities. Normal gait. Vital Signs: 20:11 BP 163 / 112 RA Sitting; Pulse 91; Resp 18; Temp 98.4(TE); Pulse Ox 99% on R/A; Weight me1 90.72 kg; Height 5 ft. 10 in. ; 20:37 BP 143 / 101; Pulse 91; Resp 16 S; Pulse Ox 96% on R/A; jw7 21:30 BP 150 / 100 RA Standing (auto/reg); Pulse 88 MON; Resp 16 S; Pulse Ox 98% on R/A; jw7 20:11 Body Mass Index 28.70 (90.72 kg, 177.8 cm) me1 MDM: 20:19 Patient medically screened. kb 21:46 Differential diagnosis: electrolyte imbalance, heat exposure, dehydration, muscle kb cramps. Data reviewed: vital signs, nurses notes. Test considered but Not performed: Labs: flu and covid tests considered, but pt states he does not feel sick. . Counseling: I had a detailed discussion with the patient and/or guardian regarding the historical points, exam findings, and any diagnostic results supporting the discharge/admit diagnosis, lab results, the need for outpatient follow up, a family practitioner, to return to the emergency department if symptoms worsen or persist or if there are any questions or concerns that arise at home. 07/25 20: Order name: CBC with Diff; Complete Time: 21:03 kb 07/25 20: Order name: Basic Metabolic Panel; Complete Time: 20:59 kb 07/25 21:02 Order name: Magnesium; Complete Time: 21:43 kb 07/25 20: Order name: IV Start; Complete Time: 20:36 kb Administered Medications: 20:36 Drug: NS 0.9% IV 1000 ml IV at 1000 ml once Route: IV; Rate: 1000 ml; Site: left jw7 antecubital; 22:02 Follow up: Response: No adverse reaction; IV Status: Completed infusion; IV Intake: jw7 1000ml Disposition: 07/26 08:48 Co-signature as Attending Physician, Ke Quinonez MD I agree with the assessment sp4 and plan of care. I reviewed the patient's care provided by the Advanced Practice Provider and agree with the diagnosis and treatment plan. Disposition Summary: 07/25/23 21:45 Discharge Ordered Notes: Location: Home kb Condition: Stable kb Diagnosis - Cramp and spasm kb Followup: kb - With: Emergency Department - When: As needed - Reason: Worsening of condition Followup: kb - With: Private Physician - When: 2 - 3 days - Reason: Recheck today's complaints, Continuance of care, Re-evaluation by your physician Discharge Instructions: - Discharge Summary Sheet kb - Leg Cramps kb - Muscle Cramps and Spasms, [id number] kb Forms: - Medication Reconciliation Form kb - Thank You Letter kb - Antibiotic Education kb - Prescription Opioid Use kb - Patient Portal Instructions kb - Leadership Thank You Letter kb Signatures: Dispatcher [employer] EDPau Johnson, ELECTRONIC DEVELOPMENT TECHNICIAN-C ELECTRONIC DEVELOPMENT TECHNICIAN-Chana Belle, RN RN jw7 Ke Quinonez MD MD sp4 Shayy Ramirez, RN RN me1
[2023-07-26 00:14] VITALS: TEMP 98.4
[2023-07-26 00:16] VITALS: BP 150/100; O2SAT 98
== END 2023-07-25 22:02 | disposition home or self-care (01) ==
LOC: ER 20:04
DX: R25.2 Cramp and spasm (principal)
CPT/HCPCS: 36415; 80048; 83735; 85025; 96360; 99284; J7030